=== PATIENT | female | born 1985 | race Hispanic/Latino ===

== ENCOUNTER → 2017-07-31 | Emergency (ER) | payer MEDICAID, OTHER ==
[~2017-07-31] MED LIST: ONDA22I IM; PREN1TAB26 PO
== END ==
LOC: EDH 14:15
DX: J02.9 Acute pharyngitis, unspecified (principal); H92.01 Otalgia, right ear
CPT/HCPCS: 99281

== ENCOUNTER 2019-12-24 22:58 | Emergency (ER) | payer MEDICAID ==
[2019-12-24] MEDS ORDERED: PANTOPRAZOLE 40 MG/VIAL IVP ONE (22:59)
[2019-12-25] MEDS ORDERED: SODIUM CHLORIDE 0.9% 1000ML 2,000 ML IV ONE (00:21)
[2019-12-25] MEDS ORDERED: METOCLOPRAMIDE 10 MG/2 ML VIAL ONE (00:23)
[2019-12-25] MEDS ORDERED: ONDANSETRON HCL 4 MG/2 ML VIAL ONE (00:23)
[2019-12-25] MEDS ORDERED: FAMOTIDINE/PF 20 MG/2 ML VIAL IV ONE (00:24)
== END 2019-12-25 01:42 | disposition home or self-care (01) ==
LOC: EDH 22:58
DX: E86.9 Volume depletion, unspecified (principal); R10.13 Epigastric pain; R11.2 Nausea with vomiting, unspecified; N93.9 Abnormal uterine and vaginal bleeding, unspecified
CPT/HCPCS: 36415; 80053; 81001; 81025; 83690; 85025; 85610; 85730; 96361; 96374; 96375; 99284; C9113; J2405; J2765; J3490; J7030

== ENCOUNTER 2023-03-19 18:22 | Emergency (ER) | payer BC, MEDICAID ==
[~2023-03-19] VITALS: Ht 149.9 cm; Wt 80.3 kg
[2023-03-19 19:09] LABS: APPEARANCE,URINE TURBID (CLEAR); BILIRUBIN,URINE NEGATIVE (NEGATIVE); COLOR,URINE RED (YELLOW); GLUCOSE, URINE (UA) 100 mg/dL (NEGATIVE); KETONES,URINE 15 mg/dL (NEGATIVE); LEUKOCYTE ESTERASE ,URINE MODERATE Leu/uL (NEGATIVE); NITRATE,URINE POSITIVE (NEGATIVE); OCCULT BLOOD,URINE LARGE (NEGATIVE); PROTEIN,URINE >=300 mg/dL (NEGATIVE)
[2023-03-19 19:12] LABS: ADD UA MICROSCOPIC YES
[2023-03-19 19:14] LABS: BASOPHILS # (AUTO) 0.07 K/uL (0.00-0.20); BASOPHILS % (AUTO) 1.2 % (0.0-5.0); EOSINOPHILS % (AUTO) 1.6 % (0.0-8.0); HEMATOCRIT 31.2 % (36-48); IMMATURE GRANULOCYTE ABSOLUTE 0.04 K/uL (0-1); LYMPHOCYTES # (AUTO) 1.5 K/uL (1.0-4.8); LYMPHOCYTES % (AUTO) 24.2 % (21.0-51.0); MEAN CORPUSCULAR HEMOGLOBIN 18.4 pg (27.0-33.0); MEAN CORPUSCULAR HGB CONC 27.6 g/dL (32.0-36.0); MEAN CORPUSCULAR VOLUME 66.8 fL (79-99); MONOCYTES # (AUTO) 0.3 K/uL (0.1-1.0); MONOCYTES % (AUTO) 5.3 % (3.0-13.0); NEUTROPHILS # (AUTO) 4.1 K/uL (1.8-7.7); PLATELET COUNT (AUTO) 346 K/uL (130-400); RED BLOOD CELL COUNT(AUTO) 4.67 MIL/uL (4.00-5.50); WHITE BLOOD COUNT (AUTO) 6.1 K/uL (4.8-10.8)
[2023-03-19 19:15] LABS: HCG,QUALITATIVE URINE NEGATIVE (NEGATIVE)
[2023-03-19 19:18] LABS: RBC,URINE TNTC /HPF (0-1)
[2023-03-19 19:19] LABS: BACTERIA,URINE Rare /HPF (None Seen); SQUAMOUS EPITHELIAL CELL,UR None Seen /HPF (0-2)
[2023-03-19 19:27] LABS: ALBUMIN 3.6 g/dL (3.5-5.0); BILIRUBIN,TOTAL 0.4 mg/dL (0.2-1.0); CREATININE 0.7 mg/dL (0.5-1.5); TOTAL PROTEIN, SERUM 8.2 g/dL (6.0-8.3)
[2023-03-19 19:31] LABS: POTASSIUM 2.9 mmol/L (3.5-5.1)
[2023-03-19] MEDS ORDERED: POTASSIUM CHLORIDE 10MEQ/100ML 100 ML IV ONE (19:55)
[2023-03-19] MEDS ORDERED: POTASSIUM BICARB/CIT AC 25 MEQ TABLET.EFF PO ONE (20:00)
[2023-03-19] MEDS ORDERED: POTASSIUM CHLORIDE 10MEQ/100ML 10 MEQ/100 ML ML IV ONE (20:00)
[2023-03-19] MEDS ORDERED: ONDANSETRON 4MG INJ IVP ONE (20:30)
[2023-03-19] MEDS ORDERED: LIDOCAINE HCL 2% VISCOUS 15 ML UDCUP PO ONE (20:30)
[2023-03-19] MEDS ORDERED: MAG/ALUM/SIMETH 30 ML UDCUP PO ONE (20:30)
[2023-03-19] MEDS ORDERED: ACET-66 PO (20:40)
[2023-03-19] MEDS ORDERED: OMEP20TA2 PO (20:40)
[2023-03-19] MEDS ORDERED: MAG-55 PO (20:40)
[2023-03-19 21:51] VITALS: BP 145/89; PULSE 75; RESP 16; O2SAT 98
[2023-03-22] MEDS ORDERED: ONDA-104 PO (06:01)
[2023-03-22] MEDS ORDERED: SUCR1TAB28 PO (06:01)
== END 2023-03-19 22:03 | disposition home or self-care (01) ==
LOC: EDH 18:22
DX: K29.00 Acute gastritis without bleeding (principal); E87.6 Hypokalemia; R11.2 Nausea with vomiting, unspecified; Z90.49 Acquired absence of other specified parts of digestive tract; Z79.899 Other long term (current) drug therapy; Z98.890 Other specified postprocedural states
CPT/HCPCS: 99284; 96365; 71045; 96366; 96375; 84484; 80053; 83690; 85025; 87088; 81001; 81025; 36415; 93005; J2405; J3480

== ENCOUNTER 2023-03-24 16:25 | Emergency (ER) | payer BC, MEDICAID ==
[~2023-03-24] VITALS: Ht 149.9 cm; Wt 79.8 kg
[~2023-03-24 16:25] MED LIST changes: +ACET-66 PO; +MAG-55 PO; +OMEP20TA2 PO; +ONDA-104 PO; +SUCR1TAB28 PO
[2023-03-24 16:26] VITALS: BP 164/82; PULSE 93; RESP 20
[2023-03-24 18:21] LABS: SARS-CoV-2, RNA, NAAT NEGATIVE SARS CoV-2 (NEGATIVE)
[2023-03-24 18:24] LABS: BILIRUBIN,URINE NEGATIVE (NEGATIVE); COLOR,URINE YELLOW (YELLOW); GLUCOSE, URINE (UA) TRACE mg/dL (NEGATIVE); KETONES,URINE 150 mg/dL (NEGATIVE); LEUKOCYTE ESTERASE ,URINE 25 Leu/uL (NEGATIVE); NITRATE,URINE NEGATIVE (NEGATIVE); PROTEIN,URINE 300 mg/dL (NEGATIVE)
[2023-03-24 18:25] LABS: ADD UA MICROSCOPIC YES; APPEARANCE,URINE HAZY (CLEAR)
[2023-03-24 18:27] LABS: HCG,QUALITATIVE URINE NEGATIVE (NEGATIVE)
[2023-03-24 18:29] LABS: INFLUENZA TYPE A Negative For Type A (NEGATIVE); INFLUENZA TYPE B Negative For Type B (NEGATIVE)
[2023-03-24 18:34] LABS: BACTERIA,URINE MOD /HPF (None Seen); MUCUS,URINE MANY LPF (None Seen); SQUAMOUS EPITHELIAL CELL,UR FEW /HPF (0-2)
[2023-03-24 20:02] LABS: CREATININE 0.7 mg/dL (0.5-1.5); POTASSIUM 3.3 mmol/L (3.5-5.1)
[2023-03-24 20:06] LABS: ALBUMIN 4.2 g/dL (3.5-5.0); BILIRUBIN,TOTAL 0.8 mg/dL (0.2-1.0); TOTAL PROTEIN, SERUM 9.3 g/dL (6.0-8.3)
[2023-03-24 20:19] LABS: BASOPHILS # (AUTO) 0.12 K/uL (0.00-0.20); BASOPHILS % (AUTO) 1.5 % (0.0-5.0); EOSINOPHILS # (AUTO) 0.07 K/uL (0.00-0.70); EOSINOPHILS % (AUTO) 0.9 % (0.0-8.0); HEMATOCRIT 36.5 % (36-48); IMMATURE GRANULOCYTE ABSOLUTE 0.05 K/uL (0-1); LYMPHOCYTES # (AUTO) 1.7 K/uL (1.0-4.8); MEAN CORPUSCULAR HEMOGLOBIN 18.3 pg (27.0-33.0); MEAN CORPUSCULAR HGB CONC 27.7 g/dL (32.0-36.0); MONOCYTES # (AUTO) 0.5 K/uL (0.1-1.0); NEUTROPHILS # (AUTO) 5.5 K/uL (1.8-7.7); PLATELET COUNT (AUTO) 543 K/uL (130-400); RED BLOOD CELL COUNT(AUTO) 5.53 MIL/uL (4.00-5.50); RED CELL DISTRIBUTION WIDTH 18.7 % (11.0-15.5); WHITE BLOOD COUNT (AUTO) 7.8 K/uL (4.8-10.8)
[2023-03-24] MEDS ORDERED: SULF1TAB42 PO (20:26)
[2023-03-24] MEDS ORDERED: CEFTRIAXONE 1G VIAL IM ONE (20:30)
[2023-03-24] MEDS ORDERED: ONDANSETRON ODT 4MG TAB SL ONE (20:30)
[2023-03-24] MEDS ORDERED: METOCLOPRAMIDE 10 MG TABLET PO ONE (20:30)
== END 2023-03-24 21:51 | disposition home or self-care (01) ==
LOC: EDH 16:25
DX: N39.0 Urinary tract infection, site not specified (principal); A08.4 Viral intestinal infection, unspecified; K21.9 Gastro-esophageal reflux disease without esophagitis; K31.84 Gastroparesis; Z79.899 Other long term (current) drug therapy; Z20.822 Contact with and (suspected) exposure to COVID-19
CPT/HCPCS: 99284; 87635; 80053; 85025; 87088; 87804 ×2; 82010; 81001; 81025; 36415; 96372; C9803; J0696